=== PATIENT | female | born 1980 | race Caucasian/White ===

== ENCOUNTER 2025-01-13 13:10 | Emergency (ER) | payer OTHER ==
[~2025-01-13] VITALS: Ht 167.6 cm; Wt 55.0 kg
[2025-01-13 13:14] VITALS: O2SAT 99
[2025-01-13] MEDS: KETOROLAC 30MG/ML VIAL IM STA (14:39)
[2025-01-13 15:04] VITALS: BP 116/76; PULSE 64; RESP 18; TEMP 37; O2SAT 99
== END 2025-01-13 15:05 | disposition home or self-care (01) ==
LOC: ER 13:10
DX: M54.50 Low back pain, unspecified (principal); M25.532 Pain in left wrist; M25.531 Pain in right wrist; W01.0XXA Fall on same level from slipping, tripping and stumbling without subsequent striking against object, initial encounter; Y93.89 Activity, other specified; Y92.89 Other specified places as the place of occurrence of the external cause; Y99.8 Other external cause status
CPT/HCPCS: 99284; 72100; 73100; 96372; J1885